=== PATIENT | male | born 1980 | race Caucasian/White ===

== ENCOUNTER 2020-06-19 13:29 | Emergency (ER) | payer OTHER ==
[2020-06-19 13:45] VITALS: TEMP 97.8
[2020-06-19] MEDS ORDERED: ONDANSETRON 4 MG/2 ML VIAL IVP STA (14:22)
[2020-06-19] MEDS ORDERED: SODIUM CHLORIDE 0.9% 1,000 ML IV STA (14:22)
[2020-06-19] MEDS ORDERED: MAG HYDROX/AL HYDROX/SIMETH 30 ML, HYOSCYAMINE ELIXIR 10 ML, LIDOCAINE VISCOUS 2% 10 ML PO STA ×3 (14:22)
[2020-06-19] MEDS ORDERED: FAMOTIDINE 20 MG/2 ML VIAL IV STA (14:22)
[2020-06-19 14:56] LABS: Basophils # (A) 0.1 k/uL (0-0.2); Basophils % (A) 1 %; Eosinophils # (A) 0.1 k/uL (0-0.7); Eosinophils % (A) 1 %; HGB 16.3 gm/dL (13.0-17.5); Lymphocytes # (A) 1.7 k/uL (1.0-4.8); Lymphocytes % (A) 15 %; MCH 29.1 pg (25.0-35.0); MCHC 34.6 g/dL (31.0-37.0); MCV 83.9 fL (80.0-100.0); Mean Platelet Volume 6.5; Monocytes # (A) 0.5 k/uL (0-1.0); Monocytes % (A) 5 %; Neutrophils # (A) 8.8 k/uL (1.3-7.7); Neutrophils % (A) 78 %; Platelet Count 450 k/uL (150-450); RDW 12.1 % (11.5-15.5); WBC 11.2 k/uL (3.8-10.6)
[2020-06-19] MEDS ORDERED: HYDROmorphone 0.5 MG/0.5 ML SYRINGE IVP STA (15:01)
[2020-06-19 15:08] LABS: Appearance,Urine Clear (Clear); Bilirubin,Urine Negative (Negative); Blood,Urine Negative (Negative); Color,Urine Light Yellow; Glucose,Urine (UA) Negative (Negative); Ketones,Urine Negative (Negative); Leukocyte Esterase,Urine Negative (Negative); Nitrite,Urine Negative (Negative); Protein,Urine Negative (Negative); Specific Gravity,Urine 1.014 (1.001-1.035); Urobilinogen,Urine <2.0 mg/dL (<2.0)
--- NOTE | 2020-06-19 15:15 | XR ---
EXAMINATION TYPE: XR chest 2V DATE OF EXAM: 06/19/2020 COMPARISON: None INDICATION: Chest pain TECHNIQUE: Frontal and lateral views of the chest are obtained. FINDINGS: The heart size is normal. The pulmonary vasculature is normal. The lungs are clear. Scoliosis within the lower thoracic spine. IMPRESSION: 1. No acute pulmonary process.
--- NOTE | 2020-06-19 15:41 | US ---
EXAMINATION TYPE: US gallbladder DATE OF EXAM: 06/19/2020 COMPARISON: NONE CLINICAL HISTORY: pain. Pt states RUQ pain EXAM MEASUREMENTS: Liver Length: 16.7 cm Gallbladder Wall: 0.3 cm CBD: 0.3 cm Right Kidney: 10.7 x 6.4 x 6.0 cm Pancreas: Obscured by bowel gas Liver: wnl Gallbladder: Appeared distended, multiple gallstones, most mobile with one possible in neck/ wall th ickness upper limits of normal Evidence for sonographic Shetty's sign: Yes CBD: wnl Right Kidney: wnl, upper pole difficult to visualize Suboptimal evaluation of pancreas on initial images. IVC is seen in the hepatic dome. Visualized live r shows no worrisome mass or ductal dilatation. Gallbladder is identified. There are several mobile s hadowing gallstones. Gallbladder has distended margins. Size is upper limits of normal. Technologist identifies hyperechoic structure towards neck could reflect large calculus. Gallbladder wall measures upper limits of normal. No surrounding fluid. Positive sonographic Shetty sign noted. Right kidney s hows no hydronephrosis. IMPRESSION: Confirmation of gallstones. No convincing secondary ultrasound evidence for acute cholecy stitis however in patient with pain and sonographic Shetty sign it cannot be entirely excluded. There is suspicion for lodged stone in the gallbladder neck.
[2020-06-19 16:15] LABS: ALT 25 U/L (4-49); AST 23 U/L (17-59); African American GFR (CKD) >90 (>60 ml/min/1.73 sqM); Albumin 4.4 g/dL (3.5-5.0); Alkaline Phosphatase 62 U/L (38-126); Amylase 68 U/L (30-110); Anion Gap 9 mmol/L; Blood Urea Nitrogen 10 mg/dL (9-20); Calcium 9.7 mg/dL (8.4-10.2); Carbon Dioxide 25 mmol/L (22-30); Chloride 104 mmol/L (98-107); Glucose 115 mg/dL (74-99); Lipase 128 U/L (23-300); Non-African American GFR(CKD) >90 (>60 ml/min/1.73 sqM); Potassium 4.1 mmol/L (3.5-5.1); Sodium 138 mmol/L (137-145); Total Bilirubin 0.4 mg/dL (0.2-1.3); Total Protein 7.3 g/dL (6.3-8.2)
--- NOTE | 2020-06-19 16:30 | ED ---
General Adult HPI - General Chief complaint: Abdominal Pain Stated complaint: ABD pain Time Seen by Provider: 06/19/20 13:57 Source: patient, RN notes reviewed Mode of arrival: ambulatory Limitations: no limitations - History of Present Illness Initial comments: 39-year-old male presents to the emergency department for chief complaint of upper abdominal pain. Patient reports this started this morning after he went to the bathroom. States it has been consistent but does wax and wane in terms of pain intensity. Patient reports he has nausea vomiting with this especially when the pain gets severe. Patient denies diarrhea. Patient has never had a bdominal surgeries. He does not have fevers or chills.Patient has no other complaints at this time including shortness of breath, chest pain, abdominal pain, nausea or vomiting, headache, or visual changes. - Related Data Previous Rx's Medication Instructions Recorded Ondansetron [Zofran ODT] 4 mg PO Q8HR PRN #15 tab 06/19/20 Allergies Allergy/AdvReac Type Severity Reaction Status Date / Time No Known Allergies Allergy Verified 06/19/20 17:24 Review of Systems ROS Statement: Those systems with pertinent positive or pertinent negative responses have been documented in the HPI. ROS Other: All systems not noted in ROS Statement are negative. Past Medical History Past Medical History: Hyperlipidemia History of Any Multi-Drug Resistant Organisms: None Reported Past Surgical History: Adenoidectomy, Orthopedic Surgery Past Psychological History: No Psychological Hx Reported Smoking Status: Never smoker Past Alcohol Use History: Occasional Past Drug Use History: None Reported General Exam Limitations: no limitations General appearance: alert, in no apparent distress Head exam: Present: atraumatic, normocephalic, normal inspection Eye exam: Present: normal appearance, PERRL, EOMI. Absent: scleral icterus, conjunctival injection, periorbital swelling ENT exam: Present: normal exam, mucous membranes moist Neck exam: Present: normal inspection, full ROM. Absent: tenderness, men ingismus, lymphadenopathy Respiratory exam: Present: normal lung sounds bilaterally. Absent: respiratory distress, wheezes, rales, rhonchi, stridor Cardiovascular Exam: Present: regular rate, normal rhythm, normal heart sounds. Absent: systolic murmur, diastolic murmur, rubs, gallop, clicks GI/Abdominal exam: Present: soft, tenderness (Epigastric and right upper quadrant tenderness. No left upper quadrant or lower abdominal tenderness.), normal bowel sounds. Absent: distended, guarding, rebound, rigid Back exam: Absent: CVA tenderness (R), CVA tenderness (L) Neurological exam: Present: alert Course Vital Signs 06/19/20 06/19/20 13:41 16:56 Temperature 97.8 F Pulse Rate 77 65 Respiratory 18 16 Rate Blood Pressure 132/89 129/79 O2 Sat by Pulse 100 100 Oximetry EKG Findings - EKG Comments: EKG Findings:: Normal sinus rhythm, ventricular rate 62, MS interval 144, QTC 408 Medical Decision Making - Medical Decision Making Vitals are stable. Physical exam does reveal epigastric and right upper quadrant tenderness. CBC demonstrates mild leukocytosis likely related to vomi ting. CMP unremarkable. Amylase and lipase are within normal limits her urinalysis is negative. Ultrasound shows gallstones without convincing evidence for acute cholecystitis. However sonographic Shetty sign was positive. There is suspicion for a lodged stone in the gallbladder neck. Patient was given several different pain medications. Patient did have improvement in pain to a 3. At this time patient is in much better will be discharged home. He will follow up with surgery. However I did discuss that if symptoms are worsening he needs to return to the emergency room which she is agreeable to.I discussed this case with attending Dr. Sarah who agrees with this assessment and treatment plan. - Lab Data Result diagrams: 06/19/20 14:24 06/19/20 14:24 Lab Results 06/19/20 06/19/20 06/19/20 Range/Units 14:24 14:24 14:24 WBC 11.2 H (3.8-10.6) k/uL RBC 5.60 (4.30-5.90) m/uL Hgb 16.3 (13.0-17.5) gm/dL Hct 47.0 (39.0-53.0) % MCV 83.9 (80.0-100.0) fL MCH 29.1 (25.0-35.0) pg MCHC 34.6 (31.0-37.0) g/dL RDW 12.1 (11.5-15.5) % Plt Count 450 (150-450) k/uL MPV 6.5 Neutrophils % 78 % Lymphocytes % 15 % Monocytes % 5 % Eosinophils % 1 % Basophils % 1 % Neutrophils # 8.8 H (1.3-7.7) k/uL Lymphocytes # 1.7 (1.0-4.8) k/uL Monocytes # 0.5 (0-1.0) k/uL Eosinophils # 0.1 (0-0.7) k/uL Basophils # 0.1 (0-0.2) k/uL Sodium 138 (137-145) mmol/L Potassium 4.1 (3.5-5.1) mmol/L Chloride 104 (98-107) mmol/L Carbon Dioxide 25 (22-30) mmol/L Anion Gap 9 mmol/L BUN 10 (9-20) mg/dL Creatinine 0.82 (0.66-1.25) mg/dL Est GFR (CKD-EPI)AfAm >90 (>60 ml/min/1.73 sqM) Est GFR (CKD-EPI)NonAf >90 (>60 ml/min/1.73 sqM) Glucose 115 H (74-99) mg/dL Calcium 9.7 (8.4-10.2) mg/dL Total Bilirubin 0.4 (0.2-1.3) mg/dL AST 23 (17-59) U/L ALT 25 (4-49) U/L Alkaline Phosphatase 62 (38-126) U/L Troponin I (0.000-0.034) ng/mL Total Protein 7.3 (6.3-8.2) g/dL Albumin 4.4 (3.5-5.0) g/dL Amylase 68 (30-110) U/L Lipase 128 (23-300) U/L Urine Color Light Yellow Urine Appearance Clear (Clear) Urine pH 6.0 (5.0-8.0) Ur Specific Muse 1.014 (1.001-1.035) Urine Protein Negative (Negative) Urine Glucose (UA) Negative (Negative) Urine Ketones Negative (Negative) Urine Blood Negative (Negative) Urine Nitrite Negative (Negative) Urine Bilirubin Negative (Negative) Urine Urobilinogen <2.0 (<2.0) mg/dL Ur Leukocyte Esterase Negative (Negative) 06/19/20 Range/Units 14:24 WBC (3.8-10.6) k/uL RBC (4.30-5.90) m/uL Hgb (13.0-17.5) gm/dL Hct (39.0-53.0) % MCV (80.0-100.0) fL MCH (25.0-35.0) pg MCHC (31.0-37.0) g/dL RDW (11.5-15.5) % Plt Count (150-450) k/uL MPV Neutrophils % % Lymphocytes % % Monocytes % % Eosinophils % % Basophils % % Neutrophils # (1.3-7.7) k/uL Lymphocytes # (1.0-4.8) k/uL Monocytes # (0-1.0) k/uL Eosinophils # (0-0.7) k/uL Basophils # (0-0.2) k/uL Sodium (137-145) mmol/L Potassium (3.5-5.1) mmol/L Chloride (98-107) mmol/L Carbon Dioxide (22-30) mmol/L Anion Gap mmol/L BUN (9-20) mg/dL Creatinine (0.66-1.25) mg/dL Est GFR (CKD-EPI)AfAm (>60 ml/min/1.73 sqM) Est GFR (CKD-EPI)NonAf (>60 ml/min/1.73 sqM) Glucose (74-99) mg/dL Calcium (8.4-10.2) mg/dL Total Bilirubin (0.2-1.3) mg/dL AST (17-59) U/L ALT (4-49) U/L Alkaline Phosphatase (38-126) U/L Troponin I <0.012 (0.000-0.034) ng/mL Total Protein (6.3-8.2) g/dL Albumin (3.5-5.0) g/dL Amylase (30-110) U/L Lipase (23-300) U/L Urine Color Urine Appearance (Clear) Urine pH (5.0-8.0) Ur Specific Muse (1.001-1.035) Urine Protein (Negative) Urine Glucose (UA) (Negative) Urine Ketones (Negative) Urine Blood (Negative) Urine Nitrite (Negative) Urine Bilirubin (Negative) Urine Urobilinogen (<2.0) mg/dL Ur Leukocyte Esterase (Negative) Disposition Clinical Impression: Cholelithiasis Disposition: HOME SELF-CARE Condition: Good Instructions (If sedation given, give patient instructions): Low Fat Diet (ED), Gallstones (ED) Additional Instructions: Please take Motrin as needed for pain. If pain is severe take Tylenol 3. Take Zofran as needed for nausea. If symptoms are worsening return to the emergency room. Otherwise follow up outpatient with general surgery by calling tomorrow for the earliest appointment. Prescriptions: Ondansetron [Zofran ODT] 4 mg PO Q8HR PRN #15 tab PRN Reason: Nausea Is patient prescribed a controlled substance at d/c from ED?: No Referrals: None,Stated [Primary Care Provider] - 1-2 days aJe Combs MD [Medical Doctor] - 1-2 days Time of Disposition: 17:31
[2020-06-19] MEDS ORDERED: HYDROmorphone 1 MG/ML 1 ML SYRINGE IVP STA (16:45)
[2020-06-19] MEDS ORDERED: KETOROLAC 15 MG/ML 1 ML VIAL IVP STA (16:45)
[2020-06-19 16:58] VITALS: BP 129/79; PULSE 65; RESP 16
[2020-06-19] MEDS ORDERED: ACET/COD 300 MG/30 MG STARTER PACK 6 TAB BTL PO STA (17:31)
== END 2020-06-19 17:45 | disposition home or self-care (01) ==
LOC: EC 13:29
DX: K80.20 Calculus of gallbladder without cholecystitis without obstruction (principal); D72.829 Elevated white blood cell count, unspecified
CPT/HCPCS: 36415; 93005; 80053; 82150; 83690; 84484; 85025; 81003; 71046; 76705; 99285; 96374; 96375 ×3; 96376; 96361; J2405; J1170 ×2; J1885

== ENCOUNTER 2020-08-01 08:58 | Day surgery (SDC) | payer OTHER ==
[2020-07-29 15:43] VITALS: BMI 26.6
--- NOTE | 2020-08-01 08:46 | P.GSHP ---
History of Present Illness H&P Date: 08/01/20 Chief Complaint: Chronic cholecystitis 39-year-old male seen in the office with complaints of epigastric and right upper quadrant pain after recent visit to the ER. Patient was found to have gallstones with a thickened gallbladder wall. Mild nausea. Symptoms have improved. He is being cautious with his diet. Recent liver enzymes normal. Past Medical History Past Medical History: Hyperlipidemia Additional Past Medical History / Comment(s): gall stones, scoliosis, severe sleep apnea (needs to get machine). History of Any Multi-Drug Resistant Organisms: None Reported Past Surgical History: Adenoidectomy, Orthopedic Surgery Additional Past Surgical History / Comment(s): RIGHT SHOULDER SURGERY, RIGHT KNEE ARTHROSCOPY Past Anesthesia/Blood Transfusion Reactions: No Reported Reaction Past Psychological History: No Psychological Hx Reported Smoking Status: Never smoker Past Alcohol Use History: Occasional Additional Past Alcohol Use History / Comment(s): chews tobacco. Past Drug Use History: None Reported - Past Family History Mother Family Medical History: No Reported History Medications and Allergies Home Medications Medication Instructions Recorded Confirmed Type No Known Home Medications 07/29/20 07/29/20 History Allergies Allergy/AdvReac Type Severity Reaction Status Date / Time No Known Allergies Allergy Verified 07/29/20 15:19 Surgical - Exam Physical exam: General: Well-developed, well-nourished HEENT: Normocephalic, sclerae nonicteric Abdomen: Nontender, nondistended Extremities: No edema Neuro: Alert and oriented Assessment and Plan (1) Chronic cholecystitis Narrative/Plan: Will proceed with laparoscopic cholecystectomy, possible open cholecystectomy at this time. Risks of bleeding, infection, bile leak, bile duct injury, retained common bile duct stone, trocar injury, conversion to an open procedure, hernia, anesthesia related complications were reviewed. The patient understands and wishes to proceed. Status: Acute Code(s): K81.1 - CHRONIC CHOLECYSTITIS SNOMED Code(s): 23942890
[~2020-08-01 08:58] MED LIST: ACETAMINOPHEN TAB 500 MG TAB PO PRN; DEXAMETHASONE SOD PHOSPHATE 4 MG/ML 1 ML VIAL IV ONE; HEPARIN SODIUM,PORCINE 5,000 UNIT/ML 1 ML VIAL SQ PRN; HYDROmorphone 0.5 MG/0.5 ML SYRINGE IVP PRN; LACTATED RINGERS 1,000 ML IV SCH; LIDOCAINE 1% (10MG/ML) FOR IV START INTRADERMA PRN; MIDAZOLAM 2 MG/2 ML VIAL IV PRN; ONDANSETRON 4 MG/2 ML VIAL IVP ONE
[2020-08-01 09:29] VITALS: RESP 16; TEMP 97.9
[2020-08-01] MEDS ORDERED: SUCCINYLCHOLINE CHLORIDE 100 MG/5 ML SYR IV ONE (10:22)
[2020-08-01] MEDS ORDERED: GLYCOPYRROLATE 0.2 MG/ML 2 ML VIAL ONE (10:22)
[2020-08-01] MEDS ORDERED: fentaNYL (PF) 50 MCG/ML 2 ML AMP ONE (10:22)
[2020-08-01] MEDS ORDERED: PHENYLEPHRINE 10 MG/ML VIAL ONE (10:22)
[2020-08-01] MEDS ORDERED: PROPOFOL 10 MG/ML 20 ML VIAL IV ONE (10:22)
[2020-08-01] MEDS ORDERED: KETOROLAC 15 MG/ML 1 ML VIAL ONE (10:22)
[2020-08-01] MEDS ORDERED: LIDOCAINE 1% INJ 10MG/ML (20 ML MDV) ONE (10:22)
[2020-08-01] MEDS ORDERED: ROCURONIUM 10 MG/ML (10 ML VIAL) IV ONE (10:22)
[2020-08-01] MEDS ORDERED: MIDAZOLAM 2 MG/2 ML VIAL ONE (10:22)
[2020-08-01] MEDS ORDERED: NEOSTIGMINE 1 MG/ML 10 ML VIAL ONE (10:22)
[2020-08-01] MEDS ORDERED: BUPIVACAINE (PF) 0.25% 30 ML VIAL SQ ONE ×2 (10:53→11:19)
--- NOTE | 2020-08-01 11:37 | P.OP ---
Date of Procedure: 08/01/20 Procedure(s) Performed: PREOPERATIVE DIAGNOSIS: Chronic cholecystitis POSTOPERATIVE DIAGNOSIS: Same PROCEDURE: Laparoscopic cholecystectomy SURGEON: Garret EBL: Minimal see anesthesia record ANESTHESIA: Gen. COMPLICATIONS: None OPERATIVE PROCEDURE: The patient was brought and placed on the operating room table in the supine position. The patient was placed under general anesthesia at that time. The abdomen was prepped and draped in the usual sterile fashion. A small vertical infraumbilical incision was made. The fascia was grasped with the Enma forceps. The fascia was retracted anteriorly. The Veress needle was advanced into the peritoneal cavity. The saline drop test was normal. Insufflation took place up to 15 mmHg. A 5 mm optical trocar was advanced and the peritoneal cavity. 2 additional 5 mm trochars were placed in the right upper quadrant under direct visualization. A 12 mm trocar was advanced into the epigastric incision site. The gallbladder was retracted superiorly and laterally. The peritoneum overlying the infundibulum was bluntly dissected. The patient's cystic duct was visualized. The junction between the cystic duct common and hepatic duct was identified. The cystic duct was then divided after placement of 3 12 mm clips on the patient's side and one on the specimen side. The cystic artery was identified and clipped as well. A small vessel was seen along the gallbladder fossa and clipped as well. The gallbladder was then removed from the liver bed using electrocautery. The gallbladder was then removed from the epigastric trocar site with an Endo Catch bag. The gallbladder fossa was irrigated with saline. There was no evidence of any bleeding or biliary drainage seen. The fascia at the 12 millimeter site was closed using a Jamar-Tyler 0 Vicryl stitch. The trochars were then removed. The skin at all 4 sites was closed using a 4-0 Monocryl stitch. Skin glue was utilized on the incision sites. At the end of this procedure the sponge and needle counts were correct. DISPOSITION: Stable to the recovery room
[2020-08-01 12:42] VITALS: BP 135/82; PULSE 76
[2020-08-01] MEDS ORDERED: IBUPROFEN 600 MG TAB PO SCH (13:00)
[2020-08-01] MEDS ORDERED: ACETAMINOPHEN TAB 325 MG TAB PO SCH (16:00)
== END 2020-08-01 13:12 | disposition home or self-care (01) ==
LOC: OR 08:58
PROVIDERS: ATTEND Surgery
DX: K80.12 Calculus of gallbladder with acute and chronic cholecystitis without obstruction (principal); E78.5 Hyperlipidemia, unspecified; M41.9 Scoliosis, unspecified; F17.220 Nicotine dependence, chewing tobacco, uncomplicated; G47.33 Obstructive sleep apnea (adult) (pediatric); K08.89 Other specified disorders of teeth and supporting structures; K21.9 Gastro-esophageal reflux disease without esophagitis; Z90.89 Acquired absence of other organs; Z98.890 Other specified postprocedural states; Z98.811 Dental restoration status
CPT/HCPCS: 88304; 47562; J2250; J1644; J1100; J2370; J2710; J0690; J2405; J2001; J3010; J1885; J0330; J2704